=== PATIENT | female | born 1965 | race Caucasian/White ===

== ENCOUNTER 2021-05-07 11:57 | Inpatient (IN) | payer BC ==
[~2021-05-07] VITALS: Ht 175.3 cm; Wt 80.4 kg
--- NOTE | 2021-05-07 12:08 | PHYS DOC ---
General Adult HPI: HPI: Patient is a 56-year-old female presents to the emergency department complaining of increased urinary frequency for the past 5 days, denies urinary burning, urinary pressure, urinary discomfort, hematuria or other dysuria. Patient also reports difficulty formulating her words for the past 3 days. Patient states these of the same symptoms she had when she was septic and admitted to [facility] approximately 2 to 3 years ago. Patient denies headaches, dizziness, syncopal or near syncopal episodes. Patient denies chest pains, chest or nasal congestion, denies fever or chills. Patient denies abdominal discomfort, nausea, vomiting, or diarrhea. Patient denies constipatio n. Patient denies other physical complaints or physical concerns. Patient states she has a past medical history of hypertension, COPD, asthma, states she does not smoke cigarettes but does vape tobacco products, uses EtOH rarely stating less than once every 2 weeks. Patient denies illicit drug use, denies marijuana use. Review of Systems: Review of Systems: 14 body systems of review of systems have been reviewed. See HPI for pertinent positives and negative responses, otherwise all other systems are negative, nonpertinent or noncontributory. Constitutional: Negative except as outlined in HPI above. Skin: Negative except as outlined in HPI above. Eyes: Negative except as outlined in HPI above. HENT: Negative except as outlined in HPI above. Respiratory: Negative except as outlined in HPI above. Cardiovascular: Negative except as outlined in HPI above. GI: Negative except as outlined in HPI above. : Negative except as outlined in HPI above. Musculoskeletal: Negative except as outlined in HPI above. Integument: Negative except as outlined in HPI above. Neurologic: Negative except as outlined in HPI above. Endocrine: Negative except as outlined in HPI above. Lymphatic: Negative except as outlined in HPI above. Psychiatric: Negative except as outlined in HPI above. Heart Score: C/O Chest Pain: No Risk Factors: Risk Factors: DM, Current or recent (<one month) smoker, HTN, HLP, family history of CAD, obesity. Risk Scores: Score 0 - 3: 2.5% MACE over next 6 weeks - Discharge Home Score 4 - 6: 20.3% MACE over next 6 weeks - Admit for Clinical Observation Score 7 - 10: 72.7% MACE over next 6 weeks - Early Invasive Strategies Physical Exam: PE: Constitutional: Well developed, well nourished, no acute distress, non-toxic appearance. 56-year-old female in no apparent distress. HENT: Normocephalic, atraumatic. Oropharynx moist, pink, no deep tissue infection process appreciated, patient speaking in normal voice tones, bilateral TMs intact and within normal limits, no lymphadenopathy of the head or neck appreciated. Eyes: Conjunctiva normal, no discharge. No scleral icterus appreciated. Neck: Normal range of motion, no stridor. There is no meningismus signs, no nuchal rigidity. Cardiovascular: No cyanosis appreciated, distal cap refill less than 2 seconds. Heart rate tachycardic during physical examination, heart sounds S1-S2. Lungs & Thorax: Patient is in no respiratory distress, lung sounds are clear to auscultation all lung pavon, normal work of breathing. Abdomen: Nontender, no abnormalities noted. Skin: Warm, dry, no erythema, no rash. Back: No tenderness, no deformities. Extremities: No tenderness, no cyanosis, no clubbing, ROM intact, no edema. Neurologic: Alert and oriented X 3, normal motor function, normal sensory function, no focal deficits noted. Patient answering all questions appropriately, does take time to formulate words. Psychologic: Affect normal, judgement normal, mood normal. Current Patient Data: Labs: Laboratory Tests Test 05/07/21 12:50 White Blood Count 21.6 x10^3/uL Red Blood Count 5.15 x10^6/uL Hemoglobin 16.1 g/dL Hematocrit 48.2 % Mean Corpuscular Volume 94 fL Mean Corpuscular Hemoglobin 31 pg Mean Corpuscular Hemoglobin Concent 34 g/dL Red Cell Distribution Width 14.5 % Platelet Count 151 x10^3/uL Neutrophils (%) (Auto) 82 % Lymphocytes (%) (Auto) 11 % Monocytes (%) (Auto) 7 % Eosinophils (%) (Auto) 0 % Basophils (%) (Auto) 0 % Neutrophils # (Auto) 17.6 x10^3/uL Lymphocytes # (Auto) 2.5 x10^3/uL Monocytes # (Auto) 1.4 x10^3/uL Eosinophils # (Auto) 0.0 x10^3/uL Basophils # (Auto) 0.1 x10^3/uL Urine Collection Type Unknown Urine Color (Auto) Light orange Urine Turbidity Turbid Urine pH (Auto) 6.0 Urine Specific [place] 1.024 Urine Protein (Auto) 300 mg/dL Urine Glucose (Auto)(UA) Negative mg/dL Urine Ketones (Auto) 60 mg/dL Urine Blood (Auto) Large Urine Nitrite Negative Urine Bilirubin (Auto) Negative Urine Urobilinogen (Auto) Normal mg/dL Urine Leukocyte Esterase (Auto) Negative Urine RBC 11-20 /HPF Urine WBC Rare /HPF Urine Bacteria Moderate /HPF Sodium Level 144 mmol/L Potassium Level 3.5 mmol/L Chloride Level 106 mmol/L Carbon Dioxide Level 27 mmol/L Anion Gap 11 Blood Urea Nitrogen 25 mg/dL Creatinine 0.9 mg/dL Estimated GFR (Cockcroft-Gault) 64.3 BUN/Creatinine Ratio 28 Glucose Level 144 mg/dL Lactic Acid Level 2.2 mmol/L Calcium Level 9.4 mg/dL Magnesium Level 2.2 mg/dL Total Bilirubin 1.2 mg/dL Aspartate Amino Transf (AST/SGOT) 27 U/L Alanine Aminotransferase (ALT/SGPT) 25 U/L Alkaline Phosphatase 108 U/L Creatine Kinase 143 U/L Troponin I High Sensitivity 849 ng/L C-Reactive Protein, Quantitative 14.5 mg/L [id number] Natriuretic Peptide > 02110 pg/mL Total Protein 7.3 g/dL Albumin 3.9 g/dL Albumin/Globulin Ratio 1.1 Acetone Level Neg Current Medications Medications (Trade) Dose Ordered Sig/Dany Route PRN Reason Start Time Stop Time Status Last Admin Dose Admin Sodium Chloride 1,000 ml @ 1,000 mls/hr 1X ONCE IV 05/07/21 13:30 05/07/21 14:29 DC 05/07/21 14:13 Ceftriaxone Sodium (Rocephin) 1 gm 1X ONCE IVP 05/07/21 13:45 05/07/21 13:46 DC 05/07/21 14:13 EKG: EKG: EKG performed at 1218 by ED nursing staff shows a normal sinus rhythm without other ectopy, heart rate 100 bpm, AR interval 0.140, QTc interval 0.491, no acute STEMI, no ACS, no acute ischemia appreciated, EKG interpreted by ED attending physician Dr. Thompson. Radiology/Procedures: Radiology/Procedures: REASON: Confusion PROCEDURE: CHEST AP ONLY EXAM: CHEST ONE VIEW. HISTORY: Altered mental status. COMPARISON: None. FINDINGS: A frontal view of the chest is obtained. There are no confluent infiltrates. There is no pneumothorax or pleural effusion. The heart is not enlarged. IMPRESSION: 1. No confluent infiltrates. Electronically signed by: Chinedu Barriga MD (05/07/2021 1:46 PM) [id number] REASON: Confusion PROCEDURE: CHEST AP ONLY EXAM: CHEST ONE VIEW. HISTORY: Altered mental status. COMPARISON: None. FINDINGS: A frontal view of the chest is obtained. There are no confluent infiltrates. There is no pneumothorax or pleural effusion. The heart is not enlarged. IMPRESSION: 1. No confluent infiltrates. Electronically signed by: Chinedu Barriga MD (05/07/2021 1:46 PM) [id number] Course & Med Decision Making: Course & Med Decision Making Pertinent Labs and Imaging studies reviewed. (See chart for details) 56-year-old female, vital signs reviewed, presents emerged from concerning increased urinary frequency with confusion at home. Physical examination concerning for sepsis, patient is alert and oriented x3 however does answer questions slowly but appropriately. Will send urinalysis assay, CBC, CMP, lactic acid, high-sensitivity troponin I, BNP, acetone level, EKG, chest x-ray, CT head without contrast, blood cultures x2. 1 L normal saline IV. The patient's urine shows signs of infection to include hematuria with moderate amount of bacteria, however there is no leukocyte esterase or urine nitrites, patient's lactic acid level is 2.2, patient was given 1 L normal saline, started 1 g Roce[address] IV. Patient's CT head unremarkable, chest x-ray unremarkable, patient does have elevated troponin I, discussed this with patient, patient states she is aware of this and has had to cardiac cath procedures in the past with elevated troponin levels was told her cardiac cath were negative and she was diagnosed with broken heart syndrome. Patient states the first time her mother had recently , this was a hospital admission at [facility] approximately 4 years ago. Discussed with patient recommended admission to hospital for treatment of urinary tract infection, confusion, elevated troponin, patient is amenable to ED admission planning. Called and discussed patient case and ED work-up with inpatient management physician Dr. Russ who agrees patient case warrants admission to the hospital. The patient's primary care physician is Dr. Hines, Dr. Russ is on- call for Dr. Hines's. Patient is awaiting [facility] bed assignment from housekeeper/custodian/laundry worker at this time, remains hemodynamically stable at time of admission. Dragon Disclaimer: Dragon Disclaimer: This electronic medical record was generated, in whole or in part, using a voice recognition dictation system. Departure Departure Impression: Primary Impression: Sepsis Qualified Codes: A41.9 - Sepsis, unspecified organism Additional Impressions: Abnormal urinalysis Elevated troponin I level Disposition: ADMITTED INPATIENT Admitting Physician: Kirt Russ Condition: GUARDED Referrals: MAGGY HINES MD (PCP) COLIN THOMAS APRN May 07, 2021 12:07
[2021-05-07 13:13] LABS: BASO # 0.1 x10^3/uL (0.0-0.2); BASO % 0 % (0-3); EOS % 0 % (0-3); HEMATOCRIT 48.2 % (36.0-47.0); HEMOGLOBIN 16.1 g/dL (12.0-15.5); LYMPH # 2.5 x10^3/uL (1.0-4.8); LYMPH % 11 % (24-48); MEAN CORPUSCULAR HEMOGLOBIN 31 pg (25-35); MEAN CORPUSCULAR HGB CONC 34 g/dL (31-37); MEAN CORPUSCULAR VOLUME 94 fL (79-100); MONO # 1.4 x10^3/uL (0.0-1.1); MONO % 7 % (0-9); NEUT # 17.6 x10^3/uL (1.8-7.7); NEUT % 82 % (31-73); PLATELET COUNT 151 x10^3/uL (140-400); RED BLOOD COUNT 5.15 x10^6/uL (3.50-5.40); RED CELL DISTRIBUTION WIDTH 14.5 % (11.5-14.5); WHITE BLOOD COUNT 21.6 x10^3/uL (4.0-11.0)
--- NOTE | 2021-05-07 13:27 | EKG ---
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
[2021-05-07 13:28] LABS: CALCIUM 9.4 mg/dL (8.5-10.1); CREATININE 0.9 mg/dL (0.6-1.0); GFR 64.3; POTASSIUM 3.5 mmol/L (3.5-5.1)
[2021-05-07] MEDS ORDERED: IV NORMAL SALINE 1000ML BAG 1,000 ML IV ONE (13:30)
[2021-05-07 13:31] LABS: BACTERIA,URINE MODERATE /HPF (0-FEW); WBC,URINE RARE /HPF (0-4)
[2021-05-07 13:34] LABS: ALBUMIN 3.9 g/dL (3.4-5.0); ALBUMIN/GLOBULIN RATIO 1.1 (1.0-1.7); MAGNESIUM 2.2 mg/dL (1.8-2.4); TOTAL BILIRUBIN 1.2 mg/dL (0.2-1.0); TOTAL PROTEIN 7.3 g/dL (6.4-8.2)
[2021-05-07] MEDS ORDERED: cefTRIAXone IV Push 1 GM VIAL. IVP ONE (13:45)
--- NOTE | 2021-05-07 13:49 | RAD ---
EXAM: CHEST ONE VIEW. HISTORY: Altered mental status. COMPARISON: None. FINDINGS: A frontal view of the chest is obtained. There are no confluent infiltrates. There is no pneumothorax or pleural effusion. The heart is not en larged. IMPRESSION: 1. No confluent infiltrates. Electronically signed by: Chinedu Barriga MD (05/07/2021 1:46 PM) [id number]
--- NOTE | 2021-05-07 13:57 | RAD ---
EXAMINATION: CT HEAD/BRAIN WO. TECHNIQUE: Noncontrast axial images of the brain were obtained with coronal and sagittal reconstructi ons. One or more of the following radiation dose reduction techniques was used: automated exposure control , adjustment of mA and/or KV according to patient size, and/or utilization of iterative reconstructio n technique. HISTORY: 56 years Female Reason: Confusion /altered mental status: . . FINDINGS: There is no intracranial hemorrhage, edema or mass effect. The brain parenchyma appears un remarkable. Size of the ventricles is appropriate. The visualized portions of the orbits and paranasal sinuses appear unremarkable. IMPRESSION: No acute process. Electronically signed by: Fernando Knox MD (05/07/2021 1:54 PM) [id number]
[2021-05-07 14:09] LABS: C-REACTIVE PROTEIN 14.5 mg/L (0-3.3)
[2021-05-07 16:50] VITALS: BP 146/76
[2021-05-07 19:25] VITALS: BP 140/83
[2021-05-07 22:28] VITALS: BP 131/74
[2021-05-08 02:37] VITALS: BP 129/73
[2021-05-08 07:00] VITALS: BP 117/63
[2021-05-08] MEDS: cefTRIAXone IV Push 1 GM VIAL. IVP SCH (09:00)
[2021-05-08] MEDS ORDERED: CARVEDILOL 6.25 MG TABLET. PO SCH (09:30)
[2021-05-08] MEDS ORDERED: LISINOPRIL 20 MG TABLET PO SCH (09:30)
[2021-05-08 11:00] VITALS: BP 108/59
--- NOTE | 2021-05-08 11:30 | HP ---
DATE OF SERVICE: 05/08/2021 ADMIT DATE: 05/07/2021 CHIEF COMPLAINT: Confusion and weakness. HISTORY OF PRESENT ILLNESS: A 56-year-old white female, patient of Dr. Cordova, has a history of "broken heart syndrome" hypertension, sees her periodically for this. She has had some increasing confusion in the last few days and ER evaluation showed evidence of UTI. The lab work was unremarkable except for an elevated lactic acid and a very high BNP and troponin was mildly elevated as well as a white count was 21,000. Urine showed evidence of blood and white blood cells as well. CT scan of the head was unremarkable. She received a dose of IV Rocephin and is feeling better at this time. PAST MEDICAL HISTORY: "broken heart syndrome." MEDICATIONS: She takes carvedilol and lisinopril and some estrogen as well. PAST SURGICAL HISTORY: She has had no significant surgeries. ALLERGIES: HAS ALLERGY TO AMOXICILLIN LISTED. SOCIAL HISTORY: Single, nonsmoker, nondrinker, employed. FAMILY HISTORY: Unremarkable. REVIEW OF SYSTEMS: No other complaints. OBJECTIVE: ENT: All within normal limits. NECK: No masses, nodes or bruits. LUNGS: Clear. No tachypnea. CARDIOVASCULAR: Regular rate. Rate is 110. No irregular beats noted. ABDOMEN: Soft, benign and nontender. BACK: No flank tenderness is noted. EXTREMITIES: Good pedal and radial pulses. No joint or skin lesions. NEUROLOGIC: Physiologic and nonfocal. Alert, appropriate, responsive, oriented x 4. ASSESSMENT: Confusion, likely secondary to urinary tract infection. She has microhematuria, history of "broken heart syndrome" and hypertension. PLAN: Continue Rocephin at home meds. Follow clinically. Urine culture pending at this time. EDWARDO/CLARENCE/MOH DR: EDWARDO/vamshi TID: [id number]
[2021-05-08] MEDS ORDERED: CARV6.253 PO ×3 (12:59→13:05)
[2021-05-08] MEDS ORDERED: LISI20TA18 PO (13:07)
[2021-05-08] MEDS ORDERED: SULF1TAB24 PO (13:14)
--- NOTE | 2021-05-08 13:30 | NUR ---
SS following for discharge planning. SS reviewed pt chart and discussed with pt RN. Pt is from home with spouse and is currently on room air. Discharge order on the chart for home with self care.
--- NOTE | 2021-05-08 16:50 | DS ---
DATE OF DISCHARGE: 05/08/2021 HOSPITAL SUMMARY: A 56-year-old white female, patient of Dr. Hines who came in with confusion and CT scan and chest x-ray were clear. She had elevated white cell count and abnormal urine consistent with possible urinary tract infection. Chemistry profile was unremarkable. She received single dose of IV Rocephin and was feeling better at the time of examination. Urine cultures pending at this time. As she was preparing to receive her second dose of Rocephin, she felt some burning in the IV and declined to continue the medication and wished to be discharged and followed as an outpatient. Understanding the concerns of only partially treated urinary tract infection was still present. She was lucid, afebrile and capable of making proper decision. FINAL DIAGNOSIS: Urinary tract infection. OPERATIONS, PROCEDURES, COMPLICATIONS, AND CONSULTATIONS: None. DISPOSITION: We will start Bactrim-DS twice a day for 5 days this evening, pending results of urine culture. Follow up with Dr. Hines next week or return to the ER if she feels worse again for reevaluation or readmission. HAILEY BELTRE: Maddie TID: [id number]
[2021-05-08] MEDS ORDERED: LACTOBACILLUS RHAMNOSUS GG 1 CAPSULE. PO SCH (21:00)
== END 2021-05-08 15:00 | disposition home or self-care (01) | DRG 690 ==
LOC: ER 11:57 → ED HOLD 14:15 → 6 SOUTH 15:36
PROVIDERS: ADMIT Family Medicine; ATTEND Family Medicine
DX: N39.0 Urinary tract infection, site not specified (principal); I10 Essential (primary) hypertension; R31.29 Other microscopic hematuria; Z88.8 Allergy status to other drugs, medicaments and biological substances
CPT/HCPCS: 36415; 70450; 71045; 80053; 81001; 82010; 82550; 83605; 83735; 83880; 84484; 85025; 85651; 86140; 87040; 87086; 93005; 96374; J0696; J7030; 99285-25; G0378